=== PATIENT | male | born 1985 | race Caucasian/White ===

== ENCOUNTER 2017-04-15 19:56 | Emergency (ER) | payer OTHER ==
[2017-04-15 20:01] VITALS: BMI 22.3
[2017-04-15] MEDS ORDERED: ALPRAZolam 0.25 MG TABLET PO ONE (20:27)
--- NOTE | 2017-04-15 20:35 | PDOC ---
History of Present Illness - General Chief Complaint: Psychiatric Stated Complaint: S.OB.B History Source: Patient Exam Limitations: No Limitations - History of Present Illness Initial Comments: 04/15/17 20:28 Patient is a 31-year-old male with no past medical history complaining off anxiety symptoms since today. States he's been having these symptoms intermittently for 3 years initially was just a tightness in his chest. However , for the past month he has been having pulsating in his head him a headaches, chest tightness, feeling as if he cannot breathe. Today prior to presentation he started having facial numbness and numbness in both hands, and so has presented for evaluation. States he just started DrGeorgina to see Dr. Negron for evaluation of his condition and she has recommended a neurologic consult, however, has not made the appointment as yet. PMD: Dr. Negron PMH: As above PSocH: Negative for cigarette, illicit drugs, alcohol ALLERGY: NKDA GENERAL/CONSTITUTIONAL: [No fever or chills. No weakness. No weight change.] HEAD, EYES, EARS, NOSE AND THROAT: [No change in vision. No ear pain or discharge. No sore throat.] CARDIOVASCULAR: [No chest pain or shortness of breath.] RESPIRATORY: [No cough, wheezing, or hemoptysis.] GASTROINTESTINAL: [No nausea, vomiting, diarrhea or constipation. No rectal bleeding.] GENITOURINARY: [No dysuria, frequency, or change in urination.] MUSCULOSKELETAL: [No joint or muscle swelling or pain. No neck or back pain.] SKIN AND BREASTS: [No rash or easy bruising.] NEUROLOGIC: [No headache, vertigo, loss of consciousness, or loss of sensation.] PSYCHIATRIC: [No depression (+) anxiety.] ENDOCRINE: [No increased thirst. No abnormal weight change.] HEMATOLOGIC/LYMPHATIC: [No anemia, easy bleeding, or history of blood clots.] ALLERGIC/IMMUNOLOGIC: [No hives or skin allergy. No latex allergy.] GENERAL: [The patient is awake, alert, and fully oriented, in no acute distress. ] HEAD: [Normal with no signs of trauma.] EYES: [Pupils equal, round and reactive to light, extraocular movements intact, sclera anicteric, conjunctiva clear.] ENT: [Ears normal, nares patent, oropharynx clear without exudates. Moist mucous membranes.] NECK: [Normal range of motion, supple without lymphadenopathy, JVD, or masses.] LUNGS: [Breath sounds equal, clear to auscultation bilaterally. No wheezes, and no crackles.] HEART: [Regular rate and rhythm, normal S1 and S2 without murmur, rub.] ABDOMEN: [Soft, nontender, normoactive bowel sounds. No guarding, no rebound. No masses.] EXTREMITIES: [Normal range of motion, no edema. No clubbing or cyanosis. No cords, erythema, or tenderness.] NEUROLOGICAL: [Cranial nerves II through XII grossly intact. Normal speech, normal gait, no facial droop, 5/5 strength, cerebellar function intact] PSYCH: [Anxious mood, normal affect.] SKIN: [Warm, Dry, normal turgor, no rashes or lesions noted.] Past History - Past Medical History Allergies/Adverse Reactions: Allergies Allergy/AdvReac Type Severity Reaction Status Date / Time No Known Allergies Allergy Verified 04/15/17 19:59 Home Medications: Ambulatory Orders Lorazepam [Ativan] 0.5 mg PO DAILY #5 tablet MDD 1 04/15/17 Psychiatric Problems: Yes Suicide Attempt (Hx): No - Immunization History Immunization Up to Date: Yes - Psycho/Social/Smoking Cessation Hx Anxiety: Yes Suicidal Ideation: No Smoking History: Never smoked Hx Alcohol Use: Yes (occasional) Drug/Substance Use Hx: No Substance Use Type: Alcohol Hx Substance Use Treatment: No *Physical Exam - Vital Signs Last Vital Signs Temp Pulse Resp BP Pulse Ox 97.9 F 109 H 24 131/100 100 04/15/17 19:59 04/15/17 19:59 04/15/17 19:59 04/15/17 19:59 04/15/17 19:59 Medical Decision Making - Medical Decision Making 04/15/17 20:35 Patient is a 31-year-old male with no past medical history complaining off anxiety symptoms since today. States he's been having these symptoms intermittently for 3 years initially was just a tightness in his chest. Today with facial numbness and tingling in his hands. Has no focal neurological defecits. symptoms consistent with anxiety will give Xanax 0.5mg po now. reassess Patient is feeling better symptoms resolved 04/15/17 22:59 Selected Entries 04/15/17 22:09 Temperature 98.9 F Pulse Rate [ 75 Apical] Respiratory 18 Rate Blood Pressure 113/78 [Right Arm] Blood Pressure 89 Mean [Right Arm ] O2 Sat by Pulse 99 Oximetry (%) I discussed the physical exam findings, ancillary test results and final diagnoses with the patient. I answered all of the patient's questions. The patient was satisfied with the care received and felt comfortable with the discharge plan and treatment plan. The Patient agrees to follow up with the primary care physician within 24-72 hours. *DC/Admit/Observation/Transfer Diagnosis at time of Disposition: Anxiety - Discharge Dispostion Disposition: HOME Condition at time of disposition: Stable - Prescriptions Prescriptions: Lorazepam [Ativan] 0.5 mg PO DAILY #5 tablet MDD 1 - Referrals Referrals: STAFF,NOT ON [Primary Care Provider] - - Patient Instructions Printed Discharge Instructions: DI for Anxiety -- Adult Additional Instructions: Your Discharge Instructions: You must call primary care physician within 24 hours to arrange follow-up. Return to the Emergency Department with any new, persistent or worsening symptoms, for fever, chills, SOB, dizziness or any other concerning changes that may occur.
[2017-04-15] MEDS ORDERED: ALPRAZolam 0.25 MG TABLET ONE (20:44)
[2017-04-15 22:10] VITALS: TEMP 98.9
[2017-04-15 23:13] VITALS: BP 113/85; PULSE 72
== END 2017-04-15 23:09 | disposition home or self-care (01) ==
LOC: JER 19:56
DX: F41.9 Anxiety disorder, unspecified (principal)
CPT/HCPCS: 99282-25

== ENCOUNTER 2017-04-22 00:28 | Emergency (ER) | payer OTHER ==
[2017-04-22 00:38] VITALS: BP 130/70; PULSE 89; TEMP 98; BMI 22.3
--- NOTE | 2017-04-22 00:44 | PDOC ---
History of Present Illness - General Chief Complaint: Psychiatric Stated Complaint: DIFFICULTY BREATHING Time Seen by Provider: 04/22/17 00:41 History Source: Patient Exam Limitations: No Limitations - History of Present Illness Initial Comments: 29-year-old male with a history of anxiety presents to the emergency department complaining of worsening insomnia for the past 2 days. Patient states he's been trying to fall asleep but is having a difficult time due to the feeling of difficulty catching his breath which causes him to hyperventilate. Patient states once he starts breathing extremely fast, he feels a numbness sensation around his mouth and to his fingers. Patient denies any headache, dizziness, lightheadedness, visual disturbance, neck pains, back pains, chest pain, palpitations, shortness of breath, abdominal discomfort. Patient denies any recent travel/illness. Patient adamantly denies any alcohol/illicit drug use. He states the tingling sensation to his fingers and around his mouth subsides once he starts breathing slowly. Past History - Past Medical History Allergies/Adverse Reactions: Allergies No Known Allergies Allergy (Verified 04/22/17 00:34) Home Medications: Ambulatory Orders Lorazepam [Ativan] 0.5 mg PO DAILY #5 tablet MDD 1 04/15/17 - Immunization History Immunization Up to Date: Yes - Social History Smoking Status: Never smoked *Review of Systems - Review of Systems Able to Perform ROS?: Yes Comments:: 04/22/17 00:49 CONSTITUTIONAL: Absent: fever, chills, diaphoresis, generalized weakness, malaise, loss of appetite HEENT: Absent: rhinorrhea, nasal congestion, throat pain, throat swelling, difficulty swallowing, mouth swelling, ear pain, eye pain, visual Changes CARDIOVASCULAR: Absent: chest pain, loss of consciousness, palpitations, irregular heart rate, peripheral edema RESPIRATORY: Absent: cough, shortness of breath, dyspnea with exertion, orthopnea, wheezing, stridor, hemoptysis GASTROINTESTINAL: Absent: abdominal pain, abdominal distension, nausea, vomiting, diarrhea, constipation, melena, hematochezia GENITOURINARY: Absent: dysuria, frequency, urgency, hesitancy, hematuria, flank pain, genital pain MUSCULOSKELETAL: Absent: myalgia, arthralgia, joint swelling SKIN: Absent: rash, itching, pallor HEMATOLOGIC/IMMUNOLOGIC: Absent: easy bleeding, easy bruising, lymphadenopathy, frequent infections ENDOCRINE: Absent: unexplained weight gain, unexplained weight loss, heat intolerance, cold intolerance NEUROLOGIC: Absent: headache, focal weakness or paresthesias, dizziness, unsteady gait, seizure, mental status changes, bladder or bowel incontinence PSYCHIATRIC: +ANXIETY Absent: depression, suicidal or homicidal ideation, hallucinations. *Physical Exam - Vital Signs Last Vital Signs Temp Pulse Resp BP Pulse Ox 98 F 89 18 130/70 100 04/22/17 00:32 04/22/17 00:32 04/22/17 00:32 04/22/17 00:32 04/22/17 00:32 - Physical Exam Comments: 04/22/17 00:49 GENERAL: Well developed, well nourished. Awake and alert. No acute distress. HEENT: Normocephalic, atraumatic. PERRLA, EOMI. No conjunctival pallor. Sclera are non- icteric. Moist mucous membranes. Oropharynx is clear. NECK: Supple. Full ROM. No JVD. Carotid pulses 2+ and symmetric, without bruits. No thyromegaly. No lymphadenopathy. CARDIOVASCULAR: Regular rate and rhythm. No murmurs, rubs, or gallops. Distal pulses are 2+ and symmetric. PULMONARY: No evidence of respiratory distress. Lungs clear to auscultation bilaterally. No wheezing, rales or rhonchi. ABDOMINAL: Soft. Non-tender. Non-distended. No rebound or guarding. No organomegaly. Normoactive bowel sounds. MUSCULOSKELETAL Normal range of motion at all joints. No bony deformities or tenderness. No CVA tenderness. EXTREMITIES: No cyanosis. No clubbing. No edema. No calf tenderness. SKIN: Warm and dry. Normal capillary refill. No rashes. No jaundice. NEUROLOGICAL: Alert, awake, appropriate. Cranial nerves 2-12 intact. No deficits to light touch and temperature in face, upper extremities and lower extremities. No motor deficits in the in face, upper extremities and lower extremities. Normoreflexic in the upper and lower extremities. Normal speech. Toes are down- going bilaterally. Gait is normal without ataxia. PSYCHIATRIC: Cooperative. Good eye contact. Appropriate mood and affect. *DC/Admit/Observation/Transfer Diagnosis at time of Disposition: Anxiety Insomnia Qualifiers: Insomnia type: primary Qualified Code(s): F51.01 - Primary insomnia - Discharge Dispostion Condition at time of disposition: Stable Admit: No - Referrals Referrals: Keegan Beaulieu MD [Staff Physician] - - Patient Instructions Printed Discharge Instructions: Anxiety Disorders, Insomnia Additional Instructions: Rest Try slow breathing Follow up with your physician Return to the ER for severe/persistent/worsening symptoms
[2017-04-22] MEDS ORDERED: ALPRAZolam 0.25 MG TABLET ONE (01:09)
[2017-04-22] MEDS ORDERED: ALPRAZolam 0.25 MG TABLET PO ONE (01:17)
== END 2017-04-22 03:37 | disposition home or self-care (01) ==
LOC: JER 00:28
DX: F41.9 Anxiety disorder, unspecified (principal); F51.01 Primary insomnia; G47.8 Other sleep disorders
CPT/HCPCS: 99281-25

== ENCOUNTER 2017-05-19 03:03 | Emergency (ER) | payer OTHER ==
[2017-05-19 03:25] VITALS: BP 132/75; TEMP 98; BMI 20.1
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
--- NOTE | 2017-05-19 04:03 | PDOC ---
*Physical Exam - Vital Signs Last Vital Signs Temp Pulse Resp BP Pulse Ox 98.0 F 98 H 18 132/75 98 05/19/17 03:22 05/19/17 03:22 05/19/17 03:22 05/19/17 03:22 05/19/17 03:22 Medical Decision Making - Medical Decision Making 05/19/17 04:03 Pt seen by the Advanced Practice Provider under my direct supervision Ancillary studies reviewed I agree with plan as outlined by the Advanced Practice Provider WANDA Master
[2017-05-19 06:25] VITALS: PULSE 69
--- NOTE | 2017-05-19 09:10 | PDOC ---
Patient Follow-up (Call Back) - Post ED Follow - Up Chief Complaint: hand injur Condition at time of discharge: Good Disposition at time of original discharge: HOME Reason for Call Back: Radiology (findings of dislocation fractures 3rd to 5th metacarpasl possible fragment or FB called Pt left voice mail to call back. pt was given follow up with and placed in orthoglass splint.will tell pt about dislocation and to follow with ortho Sunday.) - Disposition Additional Instructions/Notes: spoke to pt today discussed the xray findings. pt has a cast on his hand states his fingers are not swollen, however has limited ROM. pt denies numbness or tingling. Pt will follow with hand this week. I have discussed pt should return if he is unable to see the hand surgeon Sunday or sunday. I have also told pt he should return if any increased pain or numbness or tingling. pt agrees with the dc plan.
== END 2017-05-19 05:25 | disposition home or self-care (01) ==
LOC: JER 03:03
PROC: 2W3CX1Z Immobilization of Right Lower Arm using Splint (ICD-10-PCS; principal; 2017-05-19)
DX: S62.398A Other fracture of other metacarpal bone, initial encounter for closed fracture (principal); V13.4XXA Pedal cycle driver injured in collision with car, pick-up truck or van in traffic accident, initial encounter; Y92.414 Local residential or business street as the place of occurrence of the external cause; Y93.55 Activity, bike riding; Y99.8 Other external cause status
CPT/HCPCS: 29125; 73130-TC-RT; 99282-25

== ENCOUNTER 2017-05-22 09:38 | Emergency (ER) | payer OTHER ==
[2017-05-22 09:46] VITALS: BP 125/89; PULSE 71; TEMP 98.4; BMI 21.2
--- NOTE | 2017-05-22 10:41 | PDOC ---
History of Present Illness - General Chief Complaint: Pain Stated Complaint: REVISIT/ RT HAND INJURY Time Seen by Provider: 05/22/17 10:36 History Source: Patient Exam Limitations: No Limitations - History of Present Illness Initial Comments: 05/22/17 10:38 Patient unable to attend clinic with Dr. Fortune due to his insurance. Came to ER as splint has been removed and needed reevaluation. 05/22/17 16:48 05/22/17 16:49 Occurred: reports: just prior to arrival Severity: reports: mild Pain Location: reports: upper extremity (right hand ) Loss of Consciousness: no loss of consciousness Past History - Travel Traveled outside of the country in the last 30 days: No Close contact w/someone who was outside of country & ill: No - Past Medical History Allergies/Adverse Reactions: Allergies Allergy/AdvReac Type Severity Reaction Status Date / Time caffeine AdvReac Verified 05/22/17 09:46 Home Medications: Ambulatory Orders NK [No Known Home Medication] 05/22/17 Psychiatric Problems: Yes (anxiety,depression) - Immunization History Immunization Up to Date: Yes - Suicide/Smoking/Psychosocial Hx Smoking History: Never smoked Have you smoked in the past 12 months: No Information on smoking cessation initiated: No Hx Alcohol Use: Yes (occasional) Drug/Substance Use Hx: No Substance Use Type: None Hx Substance Use Treatment: No Trauma Specific PMHX - Complaint Specific PMHX Arthritis: No Back Injury: No Neck Injury: No Hx Sacro Iliac Joint Dysfunction: No Review of Systems - Review of Systems Able to Perform ROS?: Yes Is the patient limited Ivorian proficient: Yes Constitutional: Yes: Symptoms Reported, See HPI. No: Malaise HEENTM: No: Symptoms Reported Respiratory: No: Symptoms reported Musculoskeletal: Yes: Symptoms Reported, See HPI, Joint Pain (, bruising and tenderness with flexion and extension.) Integumentary: Yes: See HPI, Bruising Neurological: Yes: Symptoms reported All Other Systems: Reviewed and Negative *Physical Exam - Vital Signs Last Vital Signs Temp Pulse Resp BP Pulse Ox 98.4 F 71 18 125/89 100 05/22/17 09:43 05/22/17 09:43 05/22/17 09:43 05/22/17 09:43 05/22/17 09:43 - Physical Exam General Appearance: Yes: Nourished, Appropriately Dressed. No: Apparent Distress HEENT: positive: TIFFANI, Normal ENT Inspection, TMs Normal, Pharynx Normal Neck: positive: Supple. negative: Tender, Lymphadenopathy (R), Lymphadenopathy (L) Musculoskeletal: positive: Normal Inspection Extremity: positive: Tender (midpoint hand, with swelling), Swelling (able to flex and extend fingers, but has tenderness and unable to make fist. Her vascular intact to fingers). 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 Encouraged to use insurance card for referral for appropriate orthopedic an inch insurance coverage otherwise may follow up at large tertiary institutions for follow-up within the week for casting of third metacarpal fracture *DC/Admit/Observation/Transfer Diagnosis at time of Disposition: Visit for wound check - Discharge Dispostion Disposition: HOME Condition at time of disposition: Stable Admit: No - Referrals Referrals: STAFF,NOT ON [Primary Care Provider] - - Patient Instructions Printed Discharge Instructions: DI for a Hand Fracture Additional Instructions: Rest, ice to area on and off for 15 minutes 4-6 times a day Avoid heavy lifting or exercise until pain and swelling is resolved or until further directed Keep area highly elevated to reduce swelling Use splints/Joe wrap as directed Followup with orthopedist in one to 2 days if not improving, if significantly improved may wait one week for followup with orthopedist Do not remove splint until seen by orthopedist May use ibuprofen 2-200 mg tablets every 6 hours as needed for pain - Post Discharge Activity Forms/Work/School Notes: Back to Work
== END 2017-05-22 10:50 | disposition home or self-care (01) ==
LOC: JERFT 09:38
PROC: 2W3CX1Z Immobilization of Right Lower Arm using Splint (ICD-10-PCS; principal; 2017-05-22)
DX: Z47.89 Encounter for other orthopedic aftercare (principal)
CPT/HCPCS: 29125; 99281-25

== ENCOUNTER 2017-05-30 13:12 | Day surgery (SDC) | payer OTHER ==
[2017-05-28 14:43] VITALS: BMI 22.6
[2017-05-30] MEDS ORDERED: MIDAZOLAM HCL 2 MG/2 ML SINGLE DOSE VIAL ONE (14:41)
[2017-05-30] MEDS ORDERED: LIDOCAINE HCL 2% 100 MG/5 ML DISP.SYRIN ONE (15:05)
[2017-05-30] MEDS ORDERED: PROPOFOL 20 ML ONE ×2 (15:05→15:11)
[2017-05-30] MEDS ORDERED: KETOROLAC TROMETHAMINE 30 MG/1 ML VIAL ONE (15:54)
[2017-05-30] MEDS ORDERED: DEXAMETHASONE SOD PHOSPHATE 4 MG/1 ML VIAL ONE (15:54)
[2017-05-30] MEDS ORDERED: ceFAZolin SODIUM 1 GM VIAL ONE (15:54)
[2017-05-30] MEDS ORDERED: ONDANSETRON 4 MG/2 ML VIAL ONE (15:54)
[2017-05-30] MEDS ORDERED: BUPIVACAINE HCL/PF 0.25% (2.5MG/ML) 10 ML VIAL IJ ONE (16:00)
[2017-05-30] MEDS ORDERED: BUPIVACAINE HCL/PF 2.5 MG/ML - 30 ML VIAL IJ ONE (16:08)
[2017-05-30] MEDS ORDERED: ONDANSETRON 4 MG/2 ML VIAL IVPUSH PRN (16:25)
[2017-05-30] MEDS ORDERED: oxyCODONE HCL 5 MG TABLET PO PRN (16:25)
[2017-05-30] MEDS ORDERED: LACTATED RINGERS SOLUTION 1,000 ML IV SCH (16:30)
[2017-05-30] MEDS ORDERED: oxyCODONE HCL 5 MG TABLET ONE (17:42)
[2017-05-30 19:03] VITALS: BP 128/80; PULSE 79; TEMP 97.9
--- NOTE | 2017-06-01 17:16 | OP ---
DATE OF OPERATION: 05/30/2017 PREOPERATIVE DIAGNOSES: 1. Right 4th and 5th carpometacarpal fracture/dislocations. 2. Right hamate fracture. 3. Right 3rd metacarpal fracture. POSTOPERATIVE DIAGNOSES: 1. Right 4th and 5th carpometacarpal fracture/dislocations. 2. Right hamate fracture. 3. Right 3rd metacarpal fracture. OPERATIVE PROCEDURES: 1. Open reduction and internal fixation of right 4th and 5th carpometacarpal dislocations. 2. Open reduction and internal fixation of right hamate fracture. 3. Open reduction and internal fixation of right 3rd metacarpal fracture. SURGEON: Malik Brooks MD DOG RAISER: ERNESTO Solomon ANESTHESIA: General. COMPLICATIONS: None. ESTIMATED BLOOD LOSS: Minimal. INDICATION FOR PROCEDURE: The patient is a 32-year-old male with the above finding, indicated for operative treatment. Risks, benefits, and alternatives were discussed with the patient at length. Proper informed consent was obtained. DESCRIPTION OF PROCEDURE: After proper identification of the patient and correct operative site, patient was brought to the operating room and placed supine on the operating table. All prominences were well padded. General anesthesia was provided by the anesthesiologist and adequate for the procedure. Right upper extremity was prepped and draped in usual sterile fashion. Closed reduction was attempted, but there was no give in the dislocation, and therefore, it was determined that open treatment was necessary. Esmarch bandage was used to exsanguinate the right upper extremity, and the tourniquet was inflated to 250 mmHg. A longitudinal incision was made over the ring finger metacarpal at the carpometacarpal joint. Incision was taken sharply through the skin with blunt and sharp dissection to the subcutaneous tissues. The carpometacarpal joints of the 4th and 5th digits were opened with a longitudinal capsulotomy. Scar tissue and hematoma and fracture fragments were removed from the joint. Significant dorsal hamate comminution was noted. The joints were then able to be reduced, and the fracture fragments and the hamate were reduced as well. In addition, the 3rd metacarpal was reduced. K-wires were then placed across all carpometacarpal joints and the fractures to secure and stabilize these injuries. Three total K-wires were used which were then bent and cut short outside the skin. Final x-rays were taken to confirm proper placement and sizing of all hardware as well as reduction of fractures and dislocations. Wound was irrigated with saline, and the capsule was repaired with a 3-0 Vicryl suture. Skin was repaired in layers using 4-0 Vicryl and 4-0 nylon sutures. Sterile dressings were applied. Splint was placed. Patient was reversed from anesthesia and brought to recovery in stable condition. ERNESTO Solomon, the bacteriology research assistant, was integral throughout this procedure. Procedure could not have been performed without a skilled operative bacteriology research assistant. Sherman [id number]
--- NOTE | 2017-06-01 17:19 | OP ---
ADDENDUM Zaheer Riley, the optometrist assistant, was integral throughout this procedure. The procedure could not have been performed without a skilled operative optometrist assistant. MARLI ESCOBAR M.D. [id number]
== END 2017-05-30 18:55 | disposition home or self-care (01) ==
LOC: FASU 13:12
PROVIDERS: ATTEND Orthopaedic Surgery Hand Surgery
PROC: 0RSS04Z Reposition Right Carpometacarpal Joint with Internal Fixation Device, Open Approach (ICD-10-PCS; 2017-05-30)
PROC: 0PSP04Z Reposition Right Metacarpal with Internal Fixation Device, Open Approach (ICD-10-PCS; 2017-05-30)
PROC: 0RSS04Z Reposition Right Carpometacarpal Joint with Internal Fixation Device, Open Approach (ICD-10-PCS; principal; 2017-05-30 15:00)
DX: S62.141A Displaced fracture of body of hamate [unciform] bone, right wrist, initial encounter for closed fracture (principal); S62.322A Displaced fracture of shaft of third metacarpal bone, right hand, initial encounter for closed fracture; S62.394A Other fracture of fourth metacarpal bone, right hand, initial encounter for closed fracture; S62.396A Other fracture of fifth metacarpal bone, right hand, initial encounter for closed fracture; X58.XXXA Exposure to other specified factors, initial encounter; Y93.9 Activity, unspecified; Y92.9 Unspecified place or not applicable
CPT/HCPCS: 73130-TC-RT; 94760

== ENCOUNTER 2019-01-11 03:17 | Emergency (ER) | payer OTHER | END 2019-01-11 06:44 | disposition home or self-care (01) | LOC: JER 03:17 ==

== ENCOUNTER 2021-02-22 14:40 | Emergency (ER) | payer OTHER ==
[2021-02-22 14:46] VITALS: BP 118/75; PULSE 88; TEMP 98.1; BMI 24.1
== END 2021-02-22 15:32 | disposition home or self-care (01) ==
LOC: JERFT 14:40
DX: S61.451A Open bite of right hand, initial encounter (principal); W54.0XXA Bitten by dog, initial encounter
CPT/HCPCS: 99283-25

== ENCOUNTER 2021-03-02 15:36 | Emergency (ER) | payer OTHER ==
[2021-03-02 15:51] VITALS: BP 114/74; PULSE 87; TEMP 98.6; BMI 24.1
== END 2021-03-02 18:41 | disposition home or self-care (01) ==
LOC: JERFT 15:36
DX: N48.1 Balanitis (principal)
CPT/HCPCS: 36415; 87491; 87591; 99283-25